=== PATIENT | male | born 2000 | race Caucasian/White ===

== ENCOUNTER 2024-06-28 22:51 | Observation (INO) | payer OTHER, SELFPAY ==
[2024-06-28 17:24] VITALS: BP 129/77
[2024-06-28 18:06] LABS: % Basophils 0.3 % (0-2); % Immature Granulocytes 0.3 % (0-0.5); % Lymphocytes 17.5 % (20.5-51.1); % Monocytes 4.4 % (1.7-9.3); % Neutrophils 77.5 % (42.2-75.2); Absolute Lymphocytes 0.6 10^3/uL (1.2-3.4); Absolute Monocytes 0.1 10^3/uL (0.1-0.6); Absolute Neutrophils 2.4 10^3/uL (1.4-6.5); Hematocrit 40.5 % (39.0-52.0); Hemoglobin 13.5 g/dL (13.0-18.0); Mean Corp Hgb Conc. 33.3 g/dL (33.0-37.0); Mean Corpuscular Hgb 26.6 pg (27.0-31.0); Mean Corpuscular Volume 79.7 fL (80.0-94.0); Mean Platelet Volume 9.5 fL (7.4-10.4); Nucleated Red Blood Cells % 0 % (-); Platelet Count 248 10^3/uL (130-400); Red Blood Cell Count 5.08 10^6/uL (4.70-6.10); Red Cell Dist. Width 14.8 % (11.5-14.5); White Blood Cell Count 3.2 10^3/uL (4.8-10.8)
[2024-06-28 18:23] LABS: ALT (SGPT) 25 U/L (0-50); AST (SGOT) 33 U/L (17-59); Albumin 3.6 g/dl (3.5-5.0); Alkaline Phosphatase 55 U/L (38-126); Blood Urea Nitrogen 14 mg/dl (9-20); Calcium 8.9 mg/dl (8.4-10.2); Carbon Dioxide 25 mmol/L (22-30); Chloride 102 mmol/L (98-107); Glucose 108 mg/dl (70-99); Lipase 73 U/L (23-300); Potassium 3.5 mmol/L (3.5-5.1); Sodium 135 mmol/L (135-145); Total Bilirubin 0.4 mg/dl (0.2-1.3); Total Protein 6.3 g/dl (6.3-8.2); eGFR > 60.00
--- NOTE | 2024-06-28 19:09 | ED.GENMED ---
History of Present Illness
<Yg Krishna MD - Last Filed: 06/28/24 20:34>
General
Chief Complaint: Rectal Bleeding
Source: patient
Exam Limitations: none
Time Seen by Provider: 06/28/24 18:13
Nursing documentation reviewed up to this point in time: agreed with
History of Present Illness
History of Present Illness:
Patient presents to ED secondary to 3-day history of persistent nausea, vomiting, and diarrhea, along with abdominal cramping sensation. Patient states that he was seen at a different ED last night, where he received blood work and a CT scan. CT
scan showed 'severe inflammation'. Patient was advised to be admitted to the hospital, but he declined at that time. Since then, patient states that his symptoms have worsened. Denies fever or chills. Denies shortness of breath. Denies
headache. Denies recent travel. Denies sick contact. Denies previous history of similar symptoms.
Past History
<Yg Krishna MD - Last Filed: 06/28/24 20:34>
Past History
ED Past Medical History: Other (Testicular torsion)
ED Past Surgical History: Urological (Testicular torsion January 2016)
Social History
Tobacco: Non-smoker
Alcohol: None
Drug: None
Personal: Single
Living: with family
Employment: Student (College student)
Family History
Family History: Other (Noncontributory)
Review of Systems
<Yg Krishna MD - Last Filed: 06/28/24 20:34>
Review of Systems
Allergies reviewed?: Yes
All Other Systems: ROS reviewed and negative except as documented in HPI and ROS
Constitutional: Reports no symptoms; Denies fever or chills
Respiratory: Reports no symptoms
Cardiac: Reports no symptoms
ABD/GI: Reports abdominal pain, nausea, vomiting and diarrhea
Musculoskeletal: Reports no symptoms
Skin: Reports no symptoms
Neurological: Reports no symptoms; Denies dizzy or weakness
Phy Exam
<Yg Krishna MD - Last Filed: 06/28/24 20:34>
Physical Exam
Physical Exam:
Physical Exam
General: mild distress, not acutely ill. afebrile
Head: nc/at. eomi
Neck: supple. no meningeal signs.
Heart: s1/s2 regular rate and rhythm
Lungs: no acute respiratory distress. clear bilaterally
Abdomen: normal bowel sounds. mild diffuse tenderness to palpation without distention.
Neuro: alert and oriented x 3. no focal neurological deficits
Skin: no rash
Psychiatric: well kept. interactive and cooperative
Extremities: no edema. no calf tenderness.
Course
<Yg Krishna MD - Last Filed: 06/28/24 20:34>
Orders/Labs/Results
Orders:
Orders
06/28/24 Dinner
Clear Liquid
At Your Request: Full Participation
Does patient need a safe tray?: No
06/28/24 17:58
Complete Blood Count/With Diff Urgent
Comprehensive Metabolic Panel Urgent
Lipase Urgent
06/28/24 18:32
0.9% Sodium Chloride 1000 ml [Nss] 1,000 ml IV BOLUS
HYDROmorphone [Dilaudid] 0.5 mg IV NOW STA
Ondansetron Injectable [Zofran] 4 mg IV NOW STA
Pantoprazole [Protonix IV] 40 mg IV NOW STA
06/28/24 20:32
0.9% Sodium Chloride 500 ml [Nss] 500 ml IV BOLUS
Prochlorperazine [Compazine] 10 mg IV NOW STA
06/28/24 21:02
Norovirus by PCR Urgent
SO Source: Feces/Stool
Specimen Description:
Date Specimen was Collected: 06/28/24
Time Specimen was Collected: 20:53
Stool Culture Urgent
SO Source: Feces/Stool
Specimen Description:
Date Specimen was Collected: 06/28/24
Time Specimen was Collected: 20:52
06/28/24 22:23
Admit/Transfer Patient As Directed
Co-Sign Provider:
Level of Care: Observation services
Assign to:: Medical/Surgical
Physician / Group: hospitalist
Diagnosis: gastroenteritis
Code Status As Directed
Resuscitation Status: Full Code
PRN Pain Medication Management As Directed
May give lesser potent ordered pain med per pt: Yes
preference::
Protocol:: Medication orders for pain may be administered in a
manner that supports deferring to patient preference
when the pt is:
- Requesting an ordered lesser potent pain medication.
Least to most potent pain medications are defined
as: acetaminophen < NSAID < tramadol < opioids
(morphine, oxycodone, hydromorphone).
- Requesting a lesser dose of the same medication IF
ORDERED.
- Requesting a less intrusive route of administration
if both routes are prescribed by the provider (PO <
IV).
06/28/24 23:23
Acetaminophen [Tylenol] 650 mg PO Q4HPRN PRN
Dextrose 5%/0.9%Sodchl 1000 ml [D5/0.9% Sodium Chloride] 1,000 ml IV 125 mls/hr
HYDROmorphone [Dilaudid] 0.5 mg IV Q4HPRN PRN
Ketorolac [Toradol] 10 mg IV Q6HPRN PRN
Ondansetron Injectable [Zofran] 4 mg IV Q6HPRN PRN
06/28/24 23:23
Activity As Directed
Activity Level: With Assistance
Pneumatic Compression Sleeves As Directed
Type: Knee high
Vital Signs As Directed
Frequency: Per unit guidelines
DX Deep Vein Thrombosis Video Routine
06/29/24 08:00
Multivitamin [Theragran] 1 tablet PO DAILY
Pantoprazole [Protonix] 40 mg PO DAILY
Abnormal Lab Results
06/28/24
17:58
WBC 3.2 L 10^3/uL
(4.8-10.8)
MCV 79.7 L fL
(80.0-94.0)
MCH 26.6 L pg
(27.0-31.0)
RDW 14.8 H %
(11.5-14.5)
Absolute Lymphs (auto) 0.6 L 10^3/uL
(1.2-3.4)
Neutrophils % 77.5 H %
(42.2-75.2)
Lymphocytes % 17.5 L %
(20.5-51.1)
Glucose 108 H mg/dl
(70-99)
06/28/24 17:58
06/28/24 17:58
Vital Signs
Initial and Last Documented VS:
Initial Vital Signs
Temp Pulse Resp Pulse Ox
98.2 F 103 18 99
06/28/24 17:23 06/28/24 17:23 06/28/24 17:23 06/28/24 17:23
Last Documented Vital Signs
Temp Pulse Resp BP Pulse Ox
98.2 F 103 18 116/62 96
06/28/24 17:23 06/28/24 17:23 06/28/24 17:23 06/28/24 23:00 06/28/24 23:15
<Flor Cavazos DO - Last Filed: 06/29/24 02:46>
Orders/Labs/Results
Orders:
Orders
06/28/24 Dinner
Clear Liquid
At Your Request: Full Participation
Does patient need a safe tray?: No
06/28/24 17:58
Complete Blood Count/With Diff Urgent
Comprehensive Metabolic Panel Urgent
Lipase Urgent
06/28/24 18:32
0.9% Sodium Chloride 1000 ml [Nss] 1,000 ml IV BOLUS
HYDROmorphone [Dilaudid] 0.5 mg IV NOW STA
Ondansetron Injectable [Zofran] 4 mg IV NOW STA
Pantoprazole [Protonix IV] 40 mg IV NOW STA
06/28/24 20:32
0.9% Sodium Chloride 500 ml [Nss] 500 ml IV BOLUS
Prochlorperazine [Compazine] 10 mg IV NOW STA
06/28/24 21:02
Norovirus by PCR Urgent
SO Source: Feces/Stool
Specimen Description:
Date Specimen was Collected: 06/28/24
Time Specimen was Collected: 20:53
Stool Culture Urgent
SO Source: Feces/Stool
Specimen Description:
Date Specimen was Collected: 06/28/24
Time Specimen was Collected: 20:52
06/28/24 22:23
Admit/Transfer Patient As Directed
Co-Sign Provider:
Level of Care: Observation services
Assign to:: Medical/Surgical
Physician / Group: hospitalist
Diagnosis: gastroenteritis
Code Status As Directed
Resuscitation Status: Full Code
PRN Pain Medication Management As Directed
May give lesser potent ordered pain med per pt: Yes
preference::
Protocol:: Medication orders for pain may be administered in a
manner that supports deferring to patient preference
when the pt is:
- Requesting an ordered lesser potent pain medication.
Least to most potent pain medications are defined
as: acetaminophen < NSAID < tramadol < opioids
(morphine, oxycodone, hydromorphone).
- Requesting a lesser dose of the same medication IF
ORDERED.
- Requesting a less intrusive route of administration
if both routes are prescribed by the provider (PO <
IV).
06/28/24 23:23
Acetaminophen [Tylenol] 650 mg PO Q4HPRN PRN
Dextrose 5%/0.9%Sodchl 1000 ml [D5/0.9% Sodium Chloride] 1,000 ml IV 125 mls/hr
HYDROmorphone [Dilaudid] 0.5 mg IV Q4HPRN PRN
Ketorolac [Toradol] 10 mg IV Q6HPRN PRN
Ondansetron Injectable [Zofran] 4 mg IV Q6HPRN PRN
06/28/24 23:23
Activity As Directed
Activity Level: With Assistance
Pneumatic Compression Sleeves As Directed
Type: Knee high
Vital Signs As Directed
Frequency: Per unit guidelines
DX Deep Vein Thrombosis Video Routine
06/29/24 08:00
Multivitamin [Theragran] 1 tablet PO DAILY
Pantoprazole [Protonix] 40 mg PO DAILY
Abnormal Lab Results
06/28/24
17:58
WBC 3.2 L 10^3/uL
(4.8-10.8)
MCV 79.7 L fL
(80.0-94.0)
MCH 26.6 L pg
(27.0-31.0)
RDW 14.8 H %
(11.5-14.5)
Absolute Lymphs (auto) 0.6 L 10^3/uL
(1.2-3.4)
Neutrophils % 77.5 H %
(42.2-75.2)
Lymphocytes % 17.5 L %
(20.5-51.1)
Glucose 108 H mg/dl
(70-99)
06/28/24 17:58
06/28/24 17:58
Vital Signs
Initial and Last Documented VS:
Initial Vital Signs
Temp Pulse Resp Pulse Ox
98.2 F 103 18 99
06/28/24 17:23 06/28/24 17:23 06/28/24 17:23 06/28/24 17:23
Last Documented Vital Signs
Temp Pulse Resp BP Pulse Ox
98.2 F 103 18 116/62 96
06/28/24 17:23 06/28/24 17:23 06/28/24 17:23 06/28/24 23:00 06/28/24 23:15
<Yg Krishna MD - Last Filed: 06/28/24 20:34>
MDM/Problems Addressed
MDM/Problems Addressed:
CT report from [facility] ED reviewed: possible enteritis noted. no other acute findings.
<Flor Cavazos DO - Last Filed: 06/29/24 02:46>
*Critical Care Note
Total Time (30-74mins, 75-104mins- exclusive of procedures): Not Applicable
<Flor Cavazos DO - Last Filed: 06/29/24 02:46>
Update Note
Update Note:
Attending Signout Note (Flor Cavazos DO)
20:50 -assuming care of patient, 24-year-old male without significant past medical history presenting for persistent nausea, vomiting, diarrhea. Patient reports symptoms for the past 3 days, was seen at [facility] emergency department yesterday with
unremarkable CT imaging, possible enteritis. Patient with reassuring examination, vital signs, laboratory analysis. No leukocytosis. Patient being treated therapeutically with IV fluids, Compazine. Sending stool cultures. Pending reassessment
22:00 -on reassessment, patient reports that he feels no improvement, does not feel comfortable going home. He is asking to stay in the hospital. Patient will be observation admission for intractable nausea vomiting
ED Attending Note
<Yg Krishna MD - Last Filed: 06/28/24 20:34>
-
Portions of this chart may have been created with voice recognition software.� Occasional wrong word or��sound alike� substitutions may have occurred due to the inherent limitations of voice recognition software.
Discharge Plan
Departure
Patient Disposition: Admit
Date of Disposition: 06/28/24
Time of Disposition: 22:04
Presentation/result/management discussed w/ accepting MD/DO: Hospitalist
Patient with high blood pressure during this ER visit?: No
Discharge Problem:
Viral enteritis, Intractable nausea and vomiting
Interventions
Interventions:
*Risk Screen - Suicide Last Done: 06/28/24 17:23
*General Assessment Last Done: 06/28/24 17:23
*Neglect/Abuse Screening Last Done: 06/28/24 17:23
*ED- Fall Risk Assessment Last Done: 06/28/24 17:49
*ED COVID-19 Vaccine History Last Done: 06/28/24 17:23
LV-Ejwfvq-Hlluxrmsqi Assessment Last Done: 06/28/24 17:49
ED- Cardiac Assessment Last Done: 06/28/24 17:49
ED- Pulmonary Assessment Last Done: 06/28/24 17:49
[2024-06-28] MEDS: NSS 1000 IV (19:17)
[2024-06-28] MEDS: PROTONIX IV 40 MG IV (19:17)
[2024-06-28] MEDS: DILAUDID 0.5 MG IV (19:17)
[2024-06-28] MEDS: ZOFRAN 4 MG IV (19:18)
[2024-06-28 19:19] VITALS: BP 130/67
[2024-06-28 20:00] VITALS: BP 116/53
[2024-06-28] MEDS: COMPAZINE 10 MG IV (20:55)
[2024-06-28] MEDS: NSS 500 IV (20:56)
[2024-06-28 21:00] VITALS: BP 123/51
[2024-06-28 22:00] VITALS: BP 122/52
--- NOTE | 2024-06-28 22:15 | PHANOTE ---
med rec note- did question patient about home medication, patient did say he not taking any maintenance medication, but patient did fill Vyvanse 20mg daily (filled 06/27/24)
--- NOTE | 2024-06-28 22:17 | HPS.HSE ---
Family Physician
-
Family Physician: Milton Duran
Chief Complaint
-
Diarrhea
History of Present Illness
This is a healthy 24-year-old with no known segment past medical history presenting to the emergency department with nausea vomiting and diarrhea. Is reported to have had some bloody stool.
Patient reported symptoms began approximately 2 days ago. He had nausea vomiting and diarrhea that was profuse and continuous. Denies seeing any blood in the stools initially. He reports that the nausea vomiting was nonbloody and nonbilious. He
reports abdominal pain. He reports chills and intermittent fevers. He denies any alcohol use. He denies any sick contacts. He denies any recent travel. Denies recreational drugs
He was seen at [facility] emergency department 1 day ago. Blood work was unremarkable at that time. He had a CT of the abdomen pelvis which showed thickening of the small bowel with mucosal enhancement and associated mesenteric fat stranding without
bowel obstruction. He was treated symptomatically and discharged.
Patient reported that he continued to have symptoms and returns here for further management.
Here in the emergency department he was afebrile, blood pressure was 116/58 with a pulse of 103 and was satting 90% on room air. His white count is not 3.2 hemoglobin 13.5 platelet 48. Electrolytes were unremarkable with a normal sodium potassium
and bicarb. BUN and creatinine were normal. LFTs were normal. Lipase was normal.
Medical History
Past Medical History
Past Medical History: Reports None
Past Surgical History: Reports None
Social History
Tobacco: Non-smoker
Alcohol: Occasional
Drug: None
Personal: Single
Family History
Family History: Not pertinent
Allergies / Home Medications
Allergies reflects when Allergies were last updated in [employer].
Home Medications with original date entered in [employer]
Allergy/Medication List:
Allergies
Allergy/AdvReac Type Severity Reaction Status Date / Time
No Known Allergies Allergy Verified 11/24/21 09:31
Home Medications
omeprazole 40 mg capsule,delayed release 40 mg PO DAILY 06/28/24
therapeutic multivitamin 1 tab PO DAILY 06/28/24
Review of Systems
-
History Source: Patient
Constitutional: Reports No Symptoms
EENT: Reports No Symptoms
Respiratory: Reports No Symptoms
Cardiac: Reports No Symptoms
Abdomen/GI: Reports Abdominal Pain, Nausea, Vomiting and Diarrhea
: Reports No Symptoms
Musculoskeletal: Reports No Symptoms
Skin: Reports No Symptoms
Neurological: Reports No Symptoms
Endocrine: Reports No Symptoms
Hematologic/Lymphatic: Reports No Symptoms
Psych: Reports No Symptoms
Physical Exam
Vital Signs
Vital Signs
Temp Pulse Resp BP Pulse Ox
98.2 F 103 18 116/53 98
06/28/24 17:23 06/28/24 17:23 06/28/24 17:23 06/28/24 20:00 06/28/24 20:00
Physical Exam
General: Well Developed, Well Nourished and Comfortable
HEENT: NormoCephalic, Anicteric and Moist mucous membranes
Respiratory: Clear
Cardiac: S1/S2 and Regular Rhythm
Breast: Deferred by me
GI: Soft, Non Tender, Non Distended and Normal Bowel Sounds
Rectal: Deferred by Provider
Genito-urinary: Deferred by me
Musculoskeletal: No Clubbing, No Cyanosis and No Edema
Skin: Warm
Neuro: AO x 3 and Nonfocal/grossly intact
Hematologic/Lymphatic: No Lymphadenopathy
Psych: Calm
Laboratory Results
-
06/28/24 17:58
06/28/24 17:58
Laboratory Results
Total Bilirubin 0.4 mg/dl (0.2-1.3) 06/28/24 17:58
AST 33 U/L (17-59) 06/28/24 17:58
ALT 25 U/L (0-50) 06/28/24 17:58
Alkaline Phosphatase 55 U/L (38-126) 06/28/24 17:58
Lipase 73 U/L (23-300) 06/28/24 17:58
Data Reviewed
-
Lab Data: Labs Reviewed by me
Old Records: Reviewed
Impression/Plan
-
IMPRESSION:
24-year-old, no significant past medical history here with nausea vomiting diarrhea. Seen at [facility] yesterday, CT of the abdomen negative and labs are unremarkable. Persistent symptoms today and comes into the emergency department. Currently
he is well-appearing and in no acute distress. Symptoms appear to have improved although he does not feel like he is ready to go home. His labs remain unremarkable. Exam is benign.
PLAN:
Gastroenteritis -nausea vomiting diarrhea, weakness, no fevers or chills no leukocytosis. Negative CT scan. Normal LFTs and lipase.
- admit to med/surg observation
- stool studies sent
- clear liquid diet as tolerated
- IV fluids, antiemetics for now
- continue ppi daily
- DVT PPX - SCDs
Code status - full code
[2024-06-28 23:00] VITALS: BP 116/62
[2024-06-28] MEDS: D5/0.9% SODIUM CHLORIDE 1000 IV (23:50)
[2024-06-29 06:32] VITALS: BP 117/71
[2024-06-29 06:37] VITALS: BP 117/71
[2024-06-29 07:20] VITALS: BP 115/56
[2024-06-29] MEDS: D5/0.9% SODIUM CHLORIDE 1000 IV (07:45)
[2024-06-29] MEDS: THERAGRAN 1 TABLET PO (07:47)
[2024-06-29] MEDS: PROTONIX 40 MG PO (07:47)
[2024-06-29 07:51] VITALS: BMI 26.2
--- NOTE | 2024-06-29 08:31 | W.PN.HOSP.TC ---
Today's Communication/Plan
-
Dc home today.
Assessment / Plan
Assessment / Plan
Impression:
24-year-old, no significant past medical history here with nausea vomiting diarrhea. Seen at [facility] yesterday, CT of the abdomen negative and labs are unremarkable. Persistent symptoms today and comes into the emergency department. Currently
he is well-appearing and in no acute distress. Symptoms appear to have improved although he does not feel like he is ready to go home. His labs remain unremarkable. Exam is benign.
06/29
overrall feeling better, will discharge home today.
Assessment/plan:
Acute gastroenteritis gastroenteritis
Patient presents with 2 days history of nausea vomiting diarrhea, weakness, no fevers or chills no leukocytosis.
Negative CT scan.
Normal LFTs and lipase.
Admitted overnight as observation status.
Pending stool studies
Started on clear liquid diet, will advance as tolerate
IV fluid, pain and nausea,
PPI
06/29
symptoms improved, will discharge home
CODE STATUS: Full code
DVT prophylaxis: SCDs
Diet: Clear liquid diet
Total time spent on today's encounter was 40 minutes which included time spent in counseling the patient/family regarding diagnosis and treatment plan as listed above, goals of care, and symptom management. Case was discussed with nursing staff,
specialists, and care coordinators/case management. All labs and imaging personally reviewed by me. Remainder the time spent in detailed review of previous records, lab data, imaging, and other medical provider documentation.
Anticipated Discharge: Today
Subjective/Interval History
-
Date of Service: June 29, 2024
patient feels better , no more diarrhea, nausea or vomiting, will discharge home today
Objective Data
-
Vital Signs:
Vital Signs
Temp Pulse Resp BP Pulse Ox
100.0 F 84 18 117/71 98
06/29/24 06:37 06/29/24 06:37 06/28/24 17:23 06/29/24 06:37 06/29/24 06:37
Physical Exam
-
General: Well Developed, Well Nourished, No Apparent Distress and Comfortable
HEENT: Normocephalic, Atraumatic, Moist Mucous Membranes, No Ptosis, PERRLA and Nose Appears Normal
Respiratory: Clear to Auscultation and Non Labored Respirations
Cardiac: Regular Rhythm and S1/S2
Breast: Deferred by me
GI: Soft, Nontender, Nondistended and Normal Bowel Sounds
Genito-urinary: No Costovertebral Tender
Musculoskeletal: No Clubbing, No Cyanosis and No Edema
Skin: Warm
Neuro: Awake, Alert, Oriented, AO x 3 and No Motor Deficits
Psych: Calm
Data Reviewed
-
Diagnostic Radiology: Image personally visualized and interpreted and Report Reviewed by me
CT Scan: Image personally visualized and interpreted and Report Reviewed by me
Ultrasound: Image personally visualized and interpreted and Report Reviewed by me
MRI: Image personally visualized and interpreted and Report Reviewed by me
Medical Tests (Nuc Med, Echo etc): Image personally visualized and interpreted and Report Reviewed by me
Labs: Labs Reviewed by me
Old Records: Reviewed
--- NOTE | 2024-06-29 09:06 | W.DCSUMMARY ---
Discharge Summary
Discharge Data
Date of Admission: 06/28/24
Date of Discharge: 06/29/24
-
Pending Results: No
Hospital Course
Hospital course
24-year-old, no significant past medical history here with nausea vomiting diarrhea. Seen at [facility] yesterday, CT of the abdomen negative and labs are unremarkable. Persistent symptoms today and comes into the emergency department. Currently
he is well-appearing and in no acute distress. Symptoms appear to have improved although he does not feel like he is ready to go home. His labs remain unremarkable. Exam is benign.
06/29
overrall feeling better, will discharge home today.
During hospitalization patient was treated from the following
Assessment/plan:
Acute gastroenteritis gastroenteritis
Patient presents with 2 days history of nausea vomiting diarrhea, weakness, no fevers or chills no leukocytosis.
Negative CT scan.
Normal LFTs and lipase.
Admitted overnight as observation status.
Pending stool studies
Started on clear liquid diet, will advance as tolerate
IV fluid, pain and nausea,
PPI
06/29
symptoms improved, will discharge home
CODE STATUS: Full code
DVT prophylaxis: SCDs
Diet: Clear liquid diet---advance a stolerated after DC
Total time spent on today's encounter was 40 minutes which included time spent in counseling the patient/family regarding diagnosis and treatment plan as listed above, goals of care, and symptom management. Case was discussed with nursing staff,
specialists, and care coordinators/case management. All labs and imaging personally reviewed by me. Remainder the time spent in detailed review of previous records, lab data, imaging, and other medical provider documentation.
Anticipated Discharge: Today
Discharge Plan
-
Patient Disposition: Home (Routine Discharge)
Discharge Diagnosis/Procedures: Acute gastroenteritis
Diet: As tolerated
Activity: As tolerated
Referrals:
Milton Duran MD [Family Provider] -
Prescriptions:
Continued
therapeutic multivitamin Tablet
1 tab PO DAILY
omeprazole 40 mg Capsule,Delayed Release(Dr/Ec)
40 mg PO DAILY
Discharge Orders:
Discharge Patient (As Directed); Ordered 06/29/24
Ordered By: Starr Jung
Discharge Date and Time
Print Language: FIJIAN
--- NOTE | 2024-06-29 09:38 | CM ---
CM reviewed chart and pt left prior to CM meeting with him
Per chart review, no dc needs noted
== END 2024-06-29 09:25 | disposition home or self-care (01) ==
LOC: ED 22:51
PROVIDERS: Emergency Medicine; ADMITTING PHYSICIAN Internal Medicine; ATTENDING PHYSICIAN General Practice; EMERGENCY PHYSICIAN Student in an Organized Health Care Education/Training Program; FAMILY PHYSICIAN Family Medicine
DX: K52.9 Noninfective gastroenteritis and colitis, unspecified (principal); R11.2 Nausea with vomiting, unspecified; R10.9 Unspecified abdominal pain; R53.1 Weakness
CPT/HCPCS: 80053; 83690; 85025; 87045; 87046; 87427; 87798; G0378